=== PATIENT | male | born 1990 | race American Indian/Alaskan Native ===

== ENCOUNTER 2017-03-24 10:00 | Emergency (ER) | payer SELFPAY ==
--- NOTE | 2017-03-24 12:33 | XRay Report ---
CHEST 2 VIEWS INDICATION: Coughing up blood. COMPARISON: None similar. FINDINGS: PA and lateral chest radiographs demonstrate normal cardiomediastinal silhouette. Clear lungs. Intact bones. CONCLUSION: No acute disease in the chest. Thank you for the opportunity to participate in this patient's care.
[2017-03-24 12:42] LABS: Bilirubin,Urine NEG (Negative); Blood,Urine NEG (Negative); Ketones,Urine NEG (Negative); Leukocyte Esterase,Urine SM (Negative); Nitrite,Urine NEG (Negative); Protein,Urine <15 mg/dL mg/dL (Negative); Urobilinogen,Urine < 2.0 mg/dL (<2.0)
--- NOTE | 2017-03-24 13:05 | Emergency Department Report ---
Entered by JEAN IREALND, acting as scribe for MYLES OLIVAS PA. Chief Complaint: Chest Pain Stated Complaint: VOMITING BLOOD/BLOOD IN URINE/CP Time Seen by Provider: 03/24/17 12:00 - HPI History of Present Illness: Pt c/o of intermittent hematuria for 1.5 months. Notes this episode has lasted for 1 week. Pt also reports coughing up blood for 1 month. Reports having chest pain last night with associated right arm numbness. Patient currently denies any chest pain, numbness, and tingling. Reports nausea and vomiting x 1 day. Denies abdominal pain and diarrhea Reports 6/10 throbbing low back pain. Reports headache Denies dysuria, urgency, and frequency. Denies heart disease Denies PMHx of renal stones - ROS Review of Systems: All system are negative unless stated in HPI above. - Exam Vital Signs: Vital Signs 03/24/17 11:37 Temperature 98.7 F Pulse Rate 77 Respiratory 18 Rate Blood Pressure 129/92 O2 Sat by Pulse 100 Oximetry Physical Exam: General: well nourished, well developed, 27 year old male in no acute distress and nontoxic in appearance Abdomen: Below umbilical area tenderness present. No rigidity. guarding, or rebound. Soft, normal bowel sounds in all quadrants and negative CVA tenderness bilaterally. Lungs: Clear to auscultation bilaterally, no rhonchi, wheezes, or rales. Normal work of breathing. No use of accessory muscles Extremities: No CCE. +2 pulses. No neurovascular compromise. No lower extremity swelling or tenderness Chest/Cardiovascular: No chest wall tenderness or deformity. S1-S2, regular rate , regular rhythm. No murmurs. MSE screening note: Focused history and physical exam performed. Due to findings the following was ordered: see below ED Medical Decision Making - Medical Decision Making MDM Patient screened by provider in triage area. Appropriate protocol initiated .Patient to be seen by MD on main ED side. ED Disposition for MSE Condition: Stable This documentation as recorded by the scribe,JEAN IRELAND,accurately reflects the service I personally performed and the decisions made by ,MYLES OLIVAS PA.
[2017-03-24 13:26] LABS: Basophils % (Auto) 0.4 % (0.0-1.8); Eosinophils % (Auto) 3.5 % (0.0-4.3); Hematocrit 40.9 % (35.5-45.6); Hemoglobin 13.6 gm/dl (11.8-15.2); Mean Corpuscular HGB Conc 33 % (32-34); Mean Corpuscular Hemoglobin 29 pg (28-32); Mean Corpuscular Volume 87 fl (84-94); Platelet Count 208 K/mm3 (140-440); Red Blood Count 4.69 M/mm3 (3.65-5.03); Red Cell Distribution Width 13.6 % (13.2-15.2); White Blood Count 6.8 K/mm3 (4.5-11.0)
[2017-03-24 13:32] LABS: Anion Gap 17 mmol/L; BUN/Creatinine Ratio 13.33; Blood Urea Nitrogen 12 mg/dL (9-20); Carbon Dioxide 26 mmol/L (22-30); Chloride 98.6 mmol/L (98-107); Glucose 89 mg/dL (75-100); Potassium 4.5 mmol/L (3.6-5.0); Sodium 137 mmol/L (137-145)
[2017-03-24 15:32] VITALS: BP 133/95
[2017-03-24] MEDS ORDERED: NORCO 5/325 PO ONE (16:36)
--- NOTE | 2017-03-24 16:41 | Emergency Department Report ---
ED General Adult HPI - General Chief complaint: Chest Pain Stated complaint: VOMITING BLOOD/BLOOD IN URINE/CP Time Seen by Provider: 03/24/17 16:24 Source: patient Mode of arrival: Ambulatory Limitations: No Limitations - History of Present Illness Initial comments: 27-year-old male presents to the emergency Department with multiple complaints. Patient says for the past 6 weeks he has been having intermittent bright red blood in his urine. He also reports intermittently coughing up bright red blood. He states he began having some achy chest pain a couple of days ago. He also states his right arm felt numb. His chest pain was in the lower chest on both sides. He denies difficulty breathing. Patient states that he has a hole in one of his teeth and states that he thinks his chest pain and arm numbness are related to that. There are no other complaints. -: Gradual, week(s) (6) Location: chest Radiation: non-radiation Severity scale (0 -10): 10 Quality: aching Consistency: intermittent, now resolved Improves with: none Worsens with: none Treatments Prior to Arrival: none - Related Data Previous Rx's Medication Instructions Recorded Last Taken Type HYDROcodone/APAP 5-325 [[place] 1 each PO Q6HR #20 tablet 03/24/17 Unknown Rx 5-325 mg TAB] Penicillin Vk [Veetids TAB] 250 mg PO QID #30 tablet 03/24/17 Unknown Rx Allergies Allergy/AdvReac Type Severity Reaction Status Date / Time No Known Allergies Allergy Unverified 07/12/15 11:53 ED Review of Systems ROS: Stated complaint: VOMITING BLOOD/BLOOD IN URINE/CP Other details as noted in HPI Comment: All other systems reviewed and negative ENT: dental pain Respiratory: other (hemoptysis) Cardiovascular: chest pain Genitourinary: hematuria ED Past Medical Hx - Past Medical History Previous Medical History?: Yes Hx Asthma: Yes - Surgical History Past Surgical History?: Yes Additional Surgical History: Right hand surgery - Family History Family history: no significant - Social History Smoking Status: Current Every Day Smoker Substance Use Type: Alcohol - Medications Home Medications: Home Medications Medication Instructions Recorded Confirmed Last Taken Type HYDROcodone/APAP 5-325 [[place] 1 each PO Q6HR #20 tablet 03/24/17 Unknown Rx 5-325 mg TAB] Penicillin Vk [Veetids TAB] 250 mg PO QID #30 tablet 03/24/17 Unknown Rx ED Physical Exam - General Limitations: No Limitations General appearance: alert, in no apparent distress - Head Head exam: Present: atraumatic, normocephalic - Eye Eye exam: Present: normal appearance, PERRL, EOMI - ENT ENT exam: Present: normal orophraynx, mucous membranes moist, other (dental caries noted bilateral lower second molars) - Neck Neck exam: Present: normal inspection, full ROM. Absent: tenderness - Respiratory Respiratory exam: Present: normal lung sounds bilaterally. Absent: respiratory distress - Cardiovascular Cardiovascular Exam: Present: regular rate, normal rhythm, normal heart sounds - GI/Abdominal GI/Abdominal exam: Present: soft, normal bowel sounds. Absent: distended, tenderness - exam: Present: normal inspection External exam: Present: normal external exam - Extremities Exam Extremities exam: Present: normal inspection, full ROM. Absent: tenderness - Back Exam Back exam: Present: normal inspection, full ROM. Absent: tenderness - Neurological Exam Neurological exam: Present: alert, oriented X3. Absent: motor sensory deficit - Skin Skin exam: Present: warm, dry, intact ED Course Vital Signs 03/24/17 03/24/17 03/24/17 11:37 14:40 14:41 Temperature 98.7 F Pulse Rate 77 67 Respiratory 18 14 Rate Blood Pressure 129/92 125/93 Blood Pressure [Left] O2 Sat by Pulse 100 100 100 Oximetry 03/24/17 03/24/17 03/24/17 14:43 14:45 14:47 Temperature Pulse Rate 69 65 79 Respiratory 20 19 18 Rate Blood Pressure 125/93 125/93 125/93 Blood Pressure [Left] O2 Sat by Pulse 100 99 100 Oximetry 03/24/17 03/24/17 03/24/17 14:49 14:52 15:32 Temperature Pulse Rate 66 64 Respiratory 15 18 16 Rate Blood Pressure 125/93 Blood Pressure 133/95 [Left] O2 Sat by Pulse 100 100 Oximetry ED Medical Decision Making - Lab Data Result diagrams: 03/24/17 12:49 03/24/17 12:49 - EKG Data -: EKG Interpreted by Nh EKG shows normal: sinus rhythm, axis, intervals, QRS complexes, ST-T waves Rate: normal - EKG Data When compared to previous EKG there are: previous EKG unavailable Interpretation: normal EKG - Radiology Data Radiology results: report reviewed Chest x-ray shows no acute cardiopulmonary abnormality. - Medical Decision Making Lab and imaging results reviewed and discussed with the patient. Patient has had 2 negative troponins and a nonischemic ECG. There is no evidence of acute blood loss. There is no indication for inpatient admission at this time. Patient will be discharged home on oral anti-biotics and pain medication for his dental caries. Patient will be instructed to follow-up with an outpatient dentist and primary care physician. - Differential Diagnosis dental caries, atypical chest pain, acute blood loss Critical care attestation.: If time is entered above; I have spent that time in minutes in the direct care of this critically ill patient, excluding procedure time. ED Disposition Clinical Impression: Dental caries, Non-cardiac chest pain Disposition: TO HOME OR SELFCARE Is pt being admited?: No Condition: Stable Instructions: Chest Pain (ED), Dental Caries (ED) Prescriptions: HYDROcodone/APAP 5-325 [[place] 5-325 mg TAB] 1 each PO Q6HR #20 tablet Penicillin Vk [Veetids TAB] 250 mg PO QID #30 tablet Referrals: [facility] [Outside] - 3-5 Days [facility] [Outside] - 3-5 Days Time of Disposition: 16:46
== END 2017-03-24 16:59 | disposition home or self-care (01) ==
LOC: ED 10:00
DX: R07.89 Other chest pain (principal); K02.9 Dental caries, unspecified; J45.909 Unspecified asthma, uncomplicated; F17.200 Nicotine dependence, unspecified, uncomplicated
CPT/HCPCS: 36415; 71020; 80048; 81001; 84484; 85025; 87086; 93005; 93010

== ENCOUNTER 2018-02-13 15:13 | Emergency (ER) | payer SELFPAY ==
[2018-02-13 15:49] VITALS: BP 118/88
--- NOTE | 2018-02-13 18:07 | XRay Report ---
FINAL REPORT EXAM: XR SHOULDER 2+V RT HISTORY: dislocation TECHNIQUE: Three views right shoulder PRIORS: None. FINDINGS: No fractures are identified. No dislocation seen. The acromioclavicular joint is intact. Adjacent bony and soft tissue structures are unremarkable. IMPRESSION: Negative shoulder series
--- NOTE | 2018-02-13 18:32 | Emergency Department Report ---
ED Upper Extremity Inj HPI - General Chief Complaint: Extremity Injury, Upper Stated Complaint: RT SHOULDER PAIN/PUNCTURE WOUND ELBOW Source: patient Mode of arrival: Ambulatory Limitations: No Limitations - History of Present Illness Initial Comments: Mr. Lowry is a healthy male with history of asthma. He injured his right shoulder while performing a headstand. He felt as if his shoulder went out of joint. He has mild pain. However he is unable to abduct his shoulder. He is also concern for right elbow puncture wound. When pitching his tent, he punctured his right elbow with a long metal lilli at the medial aspect. Complaint: Injury to:: right, shoulder -: Sudden Other Extremity Injury: Shoulder: Right - Related Data Previous Rx's Medication Instructions Recorded Last Taken Type HYDROcodone/APAP 5-325 [[place] 1 each PO Q6HR #20 tablet 03/24/17 Unknown Rx 5-325 mg TAB] Penicillin Vk [Veetids TAB] 250 mg PO QID #30 tablet 03/24/17 Unknown Rx Allergies Allergy/AdvReac Type Severity Reaction Status Date / Time No Known Allergies Allergy Unverified 07/12/15 11:53 ED Review of Systems ROS: Stated complaint: RT SHOULDER PAIN/PUNCTURE WOUND ELBOW Other details as noted in HPI Constitutional: denies: fever, malaise Skin: lesions (puncture wound). denies: change in color, change in hair/nails, pruritus Neurological: denies: numbness, paresthesias ED Past Medical Hx - Past Medical History Hx Asthma: Yes - Surgical History Additional Surgical History: Right hand surgery - Social History Smoking Status: Current Every Day Smoker - Medications Home Medications: Home Medications Medication Instructions Recorded Confirmed Last Taken Type HYDROcodone/APAP 5-325 [[place] 1 each PO Q6HR #20 tablet 03/24/17 Unknown Rx 5-325 mg TAB] Penicillin Vk [Veetids TAB] 250 mg PO QID #30 tablet 03/24/17 Unknown Rx ED Physical Exam - General Limitations: No Limitations General appearance: alert, in no apparent distress - Respiratory Respiratory exam: Absent: respiratory distress - Skin Skin exam: Present: warm, dry, intact, normal color, other (healing 3 cm laceration at the right medial elbow no purulence no cellulitis) - Other Other exam information: Right shoulder: No tenderness no laceration no deformity. Patient is unable to abduct the shoulder. Distally median ulnar radial nerves intact he has intact deltoid sensation. Right elbow: Healing laceration, no effusion, full range of motion, no tenderness ED Course Vital Signs 02/13/18 15:45 Temperature 98.4 F Pulse Rate 87 Respiratory 16 Rate Blood Pressure 118/88 O2 Sat by Pulse 97 Oximetry ED Medical Decision Making - Medical Decision Making I suspect patient has rotator cuff injury. He was placed in sling. He is referred to orthopedic surgeon. Right puncture wound occurred 2 weeks ago. No evidence of infection. No evidence of septic arthritis. No evidence of significant injury otherwise. Tetanus booster provided in the ED Critical care attestation.: If time is entered above; I have spent that time in minutes in the direct care of this critically ill patient, excluding procedure time. ED Disposition Clinical Impression: Rotator cuff injury, Puncture wound Disposition: TO HOME OR SELFCARE Is pt being admited?: No Does the pt Need Aspirin: No Condition: Stable Instructions: Rotator Cuff Injury (ED) Referrals: TERRANCE BHATTI MD [Staff Physician] - 3-[address] [facility] [Outside] - 3-5 Days Time of Disposition: 18:34
[2018-02-13] MEDS ORDERED: BOOSTRIX IM ONE (18:34)
== END 2018-02-13 18:50 | disposition home or self-care (01) ==
LOC: ED 15:13
DX: S46.001A Unspecified injury of muscle(s) and tendon(s) of the rotator cuff of right shoulder, initial encounter (principal); S51.031A Puncture wound without foreign body of right elbow, initial encounter; J45.909 Unspecified asthma, uncomplicated; F17.200 Nicotine dependence, unspecified, uncomplicated; Z98.890 Other specified postprocedural states; X58.XXXA Exposure to other specified factors, initial encounter; Y93.42 Activity, yoga; Y92.89 Other specified places as the place of occurrence of the external cause
CPT/HCPCS: 90471; 90715

== ENCOUNTER 2020-10-15 02:44 | Emergency (ER) | payer SELFPAY ==
[2020-10-15 03:04] VITALS: BP 126/87
--- NOTE | 2020-10-15 04:10 | XRay Report ---
ABDOMEN 3 VIEW(S) INDICATION / CLINICAL INFORMATION: abd pain. COMPARISON: None available. FINDINGS: TUBES / LINES: None. BOWEL GAS PATTERN: Moderate amount of solid stool right colon. FREE AIR / EXTRALUMINAL GAS: None seen. ADDITIONAL FINDINGS: No significant additional findings. IMPRESSION: 1. Moderate constipation Signer Name: Jey Conway MD Signed: 10/15/2020 4:06 AM Workstation Name: [id number]
[2020-10-15 04:49] LABS: Basophils % (Auto) 0.6 % (0.0-1.8); Eosinophils # (Auto) 0.7 K/mm3 (0.0-0.4); Eosinophils % (Auto) 9.3 % (0.0-4.3); Hematocrit 40.6 % (35.5-45.6); Hemoglobin 13.6 gm/dl (11.8-15.2); Lymphocytes % (Auto) 27.6 % (13.4-35.0); Mean Corpuscular HGB Conc 34 % (32-34); Mean Corpuscular Volume 90 fl (84-94); Monocytes # (Auto) 0.6 K/mm3 (0.0-0.8); Monocytes % (Auto) 8.1 % (0.0-7.3); Red Cell Distribution Width 13.5 % (13.2-15.2)
[2020-10-15 04:50] LABS: Platelet Count 205 K/mm3 (140-440)
[2020-10-15 05:02] LABS: Alanine Aminotransferase 9 units/L (7-56); Albumin 4.5 g/dL (3.9-5); BUN/Creatinine Ratio 9; Blood Urea Nitrogen 9 mg/dL (9-20); Calcium 9.4 mg/dL (8.4-10.2); Hemolysis Index 4
--- NOTE | 2020-10-15 06:31 | Emergency Department Report ---
ED General Adult HPI - General Chief complaint: Abdominal Pain Stated complaint: VOIDING ISSUES Time Seen by Provider: 10/15/20 06:09 Source: patient Mode of arrival: Ambulatory Limitations: No Limitations - History of Present Illness Initial comments: 30-year-old male admits to abusing various substances. He presented to the emergency department because he had not had a bowel movement in a few days and had difficulty urinating. At the time of my encounter he feels fine. He states he is ready to go and able to urinate. He was sent to the bathroom and produced a clear yellow urine without difficulty. Having no additional complaint, after review of his medical screening he was deemed appropriate for discharge. -: Gradual, days(s) Location: abdomen (Lower) Radiation: non-radiation Quality: other (Occasional cramping) Consistency: intermittent Improves with: none, immobilization Associated Symptoms: denies other symptoms Treatments Prior to Arrival: none - Related Data Previous Rx's Medication Instructions Recorded Last Taken Type HYDROcodone/APAP 5-325 [[place] 1 each PO Q6HR #20 tablet 03/24/17 Unknown Rx 5-325 mg TAB] Penicillin Vk [Veetids TAB] 250 mg PO QID #30 tablet 03/24/17 Unknown Rx Allergies Allergy/AdvReac Type Severity Reaction Status Date / Time No Known Allergies Allergy Unverified 07/12/15 11:53 ED Review of Systems ROS: Stated complaint: VOIDING ISSUES Other details as noted in HPI Constitutional: denies: chills, fever Eyes: denies: eye pain, eye discharge, vision change ENT: denies: ear pain, throat pain Respiratory: denies: cough, shortness of breath, wheezing Cardiovascular: denies: chest pain, palpitations Endocrine: no symptoms reported Gastrointestinal: denies: abdominal pain, nausea, diarrhea Genitourinary: denies: urgency, dysuria Musculoskeletal: denies: back pain, joint swelling, arthralgia Skin: denies: rash, lesions Neurological: denies: headache, weakness, paresthesias Psychiatric: denies: anxiety, depression Hematological/Lymphatic: denies: easy bleeding, easy bruising ED Past Medical Hx - Past Medical History Previous Medical History?: Yes Hx Asthma: Yes - Surgical History Past Surgical History?: Yes Additional Surgical History: Right hand surgery - Social History Smoking Status: Never Smoker Substance Use Type: None - Medications Home Medications: Home Medications Medication Instructions Recorded Confirmed Last Taken Type HYDROcodone/APAP 5-325 [[place] 1 each PO Q6HR #20 tablet 03/24/17 Unknown Rx 5-325 mg TAB] Penicillin Vk [Veetids TAB] 250 mg PO QID #30 tablet 03/24/17 Unknown Rx ED Physical Exam - General Limitations: No Limitations General appearance: alert, in no apparent distress - Head Head exam: Present: atraumatic, normocephalic - Eye Eye exam: Present: normal appearance. Absent: scleral icterus - ENT ENT exam: Present: mucous membranes moist - Neck Neck exam: Present: normal inspection - Respiratory Respiratory exam: Present: normal lung sounds bilaterally. Absent: respiratory distress - Cardiovascular Cardiovascular Exam: Present: regular rate, normal rhythm. Absent: systolic murmur, diastolic murmur, rubs, gallop - GI/Abdominal GI/Abdominal exam: Present: soft, normal bowel sounds. Absent: distended, tenderness, guarding, rebound, rigid - Rectal Rectal exam: Present: deferred - Extremities Exam Extremities exam: Present: normal inspection - Back Exam Back exam: Present: normal inspection - Neurological Exam Neurological exam: Present: alert, oriented X3, CN II-XII intact. Absent: motor sensory deficit - Psychiatric Psychiatric exam: Present: normal affect, normal mood - Skin Skin exam: Present: warm, dry, intact, normal color. Absent: rash ED Course Vital Signs 10/15/20 03:03 Temperature 98.0 F Pulse Rate 80 Respiratory 16 Rate Blood Pressure 126/87 O2 Sat by Pulse 97 Oximetry ED Medical Decision Making - Lab Data Result diagrams: 10/15/20 03:43 10/15/20 03:43 Laboratory Results - last 24 hr 10/15/20 10/15/20 03:43 03:43 WBC 7.1 RBC 4.50 Hgb 13.6 Hct 40.6 MCV 90 MCH 30 MCHC 34 RDW 13.5 Plt Count 205 Lymph % (Auto) 27.6 [place] % (Auto) 8.1 H Eos % (Auto) 9.3 H Baso % (Auto) 0.6 Lymph # (Auto) 2.0 [place] # (Auto) 0.6 Eos # (Auto) 0.7 H Baso # (Auto) 0.0 Seg Neutrophils % 54.4 Seg Neutrophils # 3.9 Sodium 141 Potassium 4.3 Chloride 103.3 Carbon Dioxide 26 Anion Gap 16 BUN 9 Creatinine 1.0 Estimated GFR > 60 BUN/Creatinine Ratio 9 Glucose 80 Calcium 9.4 Total Bilirubin 0.20 AST 15 ALT 9 Alkaline Phosphatase 71 Total Protein 6.9 Albumin 4.5 Albumin/Globulin Ratio 1.9 - Radiology Data Radiology results: image reviewed (Some increased stool in the right colon no air-fluid levels) Critical care attestation.: If time is entered above; I have spent that time in minutes in the direct care of this critically ill patient, excluding procedure time. ED Disposition Clinical Impression: Polysubstance abuse Constipation Qualifiers: Constipation type: unspecified constipation type Qualified Code(s): K59.00 - Constipation, unspecified Disposition: TO HOME OR SELFCARE Is pt being admited?: No Does the pt Need Aspirin: No Condition: Stable Instructions: Constipation, Adult, [id number] Additional Instructions: [id number] constipation aids appropriate. Obviously avoid substances of abuse. Referrals: WYATT HARDEN MD [Primary Care Provider] - 3-5 Days [facility] [Provider Group] - 3-5 Days Time of Disposition: 06:31
== END 2020-10-15 06:36 | disposition home or self-care (01) ==
LOC: ED 02:44
DX: F19.10 Other psychoactive substance abuse, uncomplicated (principal); K59.00 Constipation, unspecified; J45.909 Unspecified asthma, uncomplicated; Z79.899 Other long term (current) drug therapy
CPT/HCPCS: 36415; 74022; 80053; 85025; 99283